=== PATIENT | male | born 1935 ===

== ENCOUNTER 2021-04-01 12:57 | Inpatient (IN) | payer OTHER, MEDICAID ==
[~2021-04-01] VITALS: Ht 172.7 cm; Wt 85.9 kg
[2021-04-01 14:07] LABS: Basophils # (auto) 0 10 ^3/uL (0-0.2); Basophils % (auto) 0.5 % (0.0-2.0); Eosinophils # (auto) 0.2 10 ^3/uL (0-0.8); Hematocrit 47.7 % (41.0-53.0); Hemoglobin 16.1 g/dL (13.5-17.5); Lymphocytes % (auto) 27.2 % (10.0-50.0); Mean Corpuscular Hemoglobin 30.4 pg (28.0-32.0); Mean Corpuscular Hgb Conc. 33.7 g/dL (32.0-36.0); Mean Corpuscular Volume 90.1 fL (80.0-100.0); Monocytes # (auto) 0.9 10 ^3/uL (0-1.3); Neutrophils # (auto) 4.3 10 ^3/uL (1.6-8.6); Neutrophils % (auto) 58.3 % (37.0-80.0); Nucleated Red Blood Cells % 0.1 %; Red Blood Cells 5.29 10^6/uL (4.5-5.90); Red Cell Distribution Width 13.5 % (11.8-14.3); White Blood Cell 7.4 10^3/uL (4.4-10.8)
[2021-04-01 14:26] LABS: Albumin 3.8 g/dL (3.4-5.0); Calcium 9.1 mg/dL (8.5-10.1); Magnesium 2.3 mg/dL (1.6-2.6)
[2021-04-01 14:31] LABS: Bilirubin, Total 0.6 mg/dL (0.2-1.0); Total Protein 7.5 g/dL (6.4-8.2)
[2021-04-01 14:54] LABS: BUN/Creatinine Ratio 21.7
[2021-04-01] MEDS ORDERED: NITROGLYCERIN 0.4 MG SL TAB SL PRN (17:15)
[2021-04-01] MEDS ORDERED: ASPirin 81 mg TAB PO ONE (17:15)
[2021-04-01] MEDS ORDERED: ACETAMINOPHEN 500 MG TAB PO PRN (17:15)
[2021-04-01] MEDS ORDERED: ONDANSETRON HCL 4 MG/2 ML VIAL IV PRN (17:15)
[2021-04-01] MEDS ORDERED: MORPHINE SULFATE INJECTION 2 MG/ML SYRG IV PRN ×2 (17:15)
[2021-04-01] MEDS ORDERED: HYDROcodone-ACET 5/325MG TAB PO PRN (17:15)
[2021-04-01] MEDS ORDERED: DOCUSATE SOD 100 MG CAP PO PRN (17:15)
[2021-04-01 17:44] LABS: Cholesterol 172 mg/dL (< 200); Triglycerides 520 mg/dL (< 150)
[2021-04-01 17:47] LABS: HDL Cholesterol 37 mg/dL (40-59)
[2021-04-01] MEDS ORDERED: ATORVASTATIN 20 MG TAB PO SCH (22:00)
[2021-04-01 23:00] VITALS: BP 152/77
[2021-04-01 23:18] VITALS: BP 152/77
[2021-04-02] MEDS ORDERED: TAMS0.4C36 PO (01:49)
[2021-04-02] MEDS ORDERED: LOVA20TA4 PO (01:49)
[2021-04-02] MEDS ORDERED: NAP500T PO (01:49)
[2021-04-02] MEDS ORDERED: METO-6 PO (01:49)
[2021-04-02] MEDS ORDERED: METO5TAB2 PO (01:49)
[2021-04-02] MEDS ORDERED: MECL12.514 PO (01:49)
[2021-04-02 05:00] VITALS: BP 123/70
[2021-04-02 08:33] LABS: Urine Bacteria NONE SEEN /hpf (None Seen); Urine Blood 1+ /uL (Negative); Urine Mucus FEW (None Seen); Urine Specific Gravity 1.023 (1.001-1.035); Urine WBC 2 /hpf (0 - 3)
[2021-04-02 09:00] VITALS: BP 125/71
[2021-04-02] MEDS: ASPirin 81 mg TAB PO SCH (09:35)
[2021-04-02] MEDS ORDERED: OPTISON 3ml Vial for INJ IV ONE (10:10)
[2021-04-02 12:41] VITALS: BP 137/72
[2021-04-02 13:00] VITALS: BP 123/70
[2021-04-02] MEDS ORDERED: ATORVASTATIN 20 MG TAB PO ONE (15:15)
[2021-04-02 16:53] VITALS: BP 136/71
[2021-04-02 22:15] VITALS: BP 132/64
[2021-04-03 05:22] VITALS: BP 138/54
[2021-04-03 09:00] VITALS: BP 129/57
[2021-04-03] MEDS: ASPirin 81 mg TAB PO SCH (09:42)
[2021-04-03 12:48] VITALS: BP 135/76
[2021-04-03 17:00] VITALS: BP 145/82
[2021-04-03] MEDS: ATORVASTATIN 20 MG TAB PO SCH (21:53)
[2021-04-03 22:25] VITALS: BP 141/72
[2021-04-04 05:25] VITALS: BP 109/71
[2021-04-04 09:00] VITALS: BP 129/70
[2021-04-04] MEDS: ASPirin 81 mg TAB PO SCH (09:45)
[2021-04-04 13:00] VITALS: BP 161/84
[2021-04-04 17:00] VITALS: BP 151/73
[2021-04-04] MEDS: ATORVASTATIN 20 MG TAB PO SCH (21:22)
[2021-04-04 22:25] VITALS: BP 123/67
[2021-04-05 05:00] VITALS: BP 114/66
[2021-04-05 09:12] VITALS: BP 134/71
[2021-04-05] MEDS: ASPirin 81 mg TAB PO SCH (10:07)
[2021-04-05 12:30] VITALS: BP 134/70
== END 2021-04-05 15:13 | disposition home or self-care (01) | DRG 65 ==
LOC: ER 12:57 → TELE 17:11 → TELE-WESTW 23:01
PROVIDERS: ADMIT Nurse Practitioner Acute Care; ATTEND Family Medicine
DX: I63.9 Cerebral infarction, unspecified (principal); G81.91 Hemiplegia, unspecified affecting right dominant side; I10 Essential (primary) hypertension; E78.00 Pure hypercholesterolemia, unspecified; E78.5 Hyperlipidemia, unspecified; Z95.0 Presence of cardiac pacemaker; Z79.82 Long term (current) use of aspirin; Z79.899 Other long term (current) drug therapy; Z86.73 Personal history of transient ischemic attack (TIA), and cerebral infarction without residual deficits; Z20.822 Contact with and (suspected) exposure to COVID-19
CPT/HCPCS: 36415; 70450; 71045; 80053; 80061; 81001; 83735; 84484; 85025; 87426; 93005; 93306; 93886; 97163; G0378; Q9956